=== PATIENT | male | born 1950 | race Caucasian/White ===

== ENCOUNTER → 2016-05-29 | Day surgery (SDC) | payer BC ==
[~2016-05-29] MED LIST: Lactated Ringers 1,000 ML IV SCH; Propofol 200 MG/20 ML SDV IV ONE
[2016-05-29 08:16] VITALS: BP 118/75
--- NOTE | 2016-05-29 08:51 | OR ---
DATE OF OPERATION: 05/29/2016 PREOPERATIVE DIAGNOSIS: HISTORY OF POLYPS. POSTOPERATIVE DIAGNOSIS: HISTORY OF POLYPS. SURGEON: Jaime Cabrera MD PROCEDURE: FULL-LENGTH COLONOSCOPY WITH POLYP REMOVAL X4. ANESTHESIA: UI APPLICATION DEVELOPER due to coronary artery disease. COMPLICATIONS: None. SPECIMEN: Four tubular adenomas. FINDINGS: 1. Full-length colonoscopy. 2. Tubular adenoma, sigmoid colon less than 0.5 cm. 3. Three right-sided polyps, all likely hyperplastic. RECOMMENDATIONS: We will make a followup recommendations pending path reports. INDICATIONS: The patient has a history of prior colonoscopy 5 years ago. He is told to have a followup at this time by a GI doctor. We elected to proceed at this time. DESCRIPTION OF PROCEDURE: The patient was prepped and draped, placed in the left lateral decubitus position. A lubricated Olympus colonoscope was inserted and easily advanced to the cecum and were directly able to visualize the ileocecal valve and appendiceal orifice. The bowel prep was adequate. There was some liquid stool throughout most of colon, but most of this was suctioned easily. Upon withdrawal right in the cecal pouch, the patient has a little cluster of what appear to be small hyperplastic polyps. It was probably anywhere from 6 to 8 of these. They were all flat and very close together. We elected to remove 2 of them with forceps in their entirety and felt the area was too broad to take all of these in one setting with a snare. The rest of the ascending colon was benign. Right at the hepatic flexure, the patient had an another what appeared to be small hyperplastic polyp removed in its entirety with forceps biopsy x2. The rest of the transverse colon and descending area looked completely benign. Throughout the sigmoid colon, there were no diverticula and no signs of colitis, vascular abnormalities, or bleeding. The patient did have a stalked tubular adenoma in mid and distal sigmoid colon, removed with a snare and suctioned into a Polyp Trap one without difficulty. The rectosigmoid junction and rectal vault appeared benign. Retroflexion of the scope in the rectum showed no anal lesions. Air was then suctioned. The scope was then removed without complication. The patient was stable in the recovery room. ALEJO/JUDD /[id number]
== END ==
LOC: CC.SDS 06:23
PROVIDERS: ATTEND Family Medicine
DX: Z12.11 Encounter for screening for malignant neoplasm of colon (principal); D12.3 Benign neoplasm of transverse colon; D12.0 Benign neoplasm of cecum; D12.4 Benign neoplasm of descending colon; D12.5 Benign neoplasm of sigmoid colon; I25.10 Atherosclerotic heart disease of native coronary artery without angina pectoris; E11.9 Type 2 diabetes mellitus without complications; E78.5 Hyperlipidemia, unspecified; I10 Essential (primary) hypertension; Z79.4 Long term (current) use of insulin; Z79.899 Other long term (current) drug therapy; Z86.010 Personal history of colon polyps; Z95.1 Presence of aortocoronary bypass graft; F17.210 Nicotine dependence, cigarettes, uncomplicated
CPT/HCPCS: 45380; 45385; 82962; J2704; J7120

== ENCOUNTER → 2019-04-14 | Day surgery (SDC) | payer MEDICARE, BC, OTHER ==
[~2019-04-14] MED LIST changes: -Propofol 200 MG/20 ML SDV IV ONE
[2019-04-14 09:53] VITALS: BP 125/76; PULSE 87
--- NOTE | 2019-04-14 14:06 | OR ---
DATE OF OPERATION: 04/14/2019 PREOPERATIVE DIAGNOSIS: FOLLOWUP POLYPS. POSTOPERATIVE DIAGNOSIS: FOLLOWUP POLYPS. SURGEON: Jaime Cabrera MD PROCEDURE: FULL-LENGTH COLONOSCOPY WITH FORCEPS POLYP REMOVAL X2. ANESTHESIA: MAC. COMPLICATIONS: None. SPECIMEN: Two small sessile polyps near hepatic flexure, each less than 0.5 cm. FINDINGS: 1. Full-length colonoscopy. 2. Marginal prep. 3. Sessile polyps x2, less than 0.5 cm. 4. Mild diverticulosis. RECOMMENDATIONS: Followup colonoscopy in 5 years. INDICATIONS: Mr. Green has had multiple scopes with polyps removed, last 1 was 3 years ago. He had 4 removed. We elected to proceed with diagnostic scope for followup. DESCRIPTION OF PROCEDURE: The patient was prepped and draped, placed in the left lateral decubitus position. Lubricated Olympus colonoscope was inserted and with ease advanced to the cecum. Unfortunately, the patient had a significant amount of stool, both in the rectal vault and the right colon. A lot of this was particulate. I irrigated the right colon quite heavily, but it was very hard to get through the scope plugged multiple times. The cecal pouch and 50% of the ascending colon were very difficult to visualize. Upon withdrawal, no obvious lesions were seen in the right colon or transverse area. Right at the splenic flexure, the patient had a small flat hyperplastic- appearing polyp, less than 0.5 cm in size. We removed it in entirely with a forceps biopsy x1. The 2nd polyp was just past the splenic flexure in the descending colon side removed with a forceps biopsy x3 without problem. Both areas had resolution of bleeding spontaneously. The rest of the descending area was benign. Throughout the sigmoid and rectosigmoid area, there were a few scattered diverticula, but no other polyps, masses, ulceration, or bleeding sites. No vascular abnormalities or signs of colitis. The rectal vault was unremarkable, but there was a heavy amount of stool present. We irrigated this, could not suction most, probably could see about 60% to 75% of the vault, the rest was stool filled. Retroflexion was able to be accomplished and no obvious perianal lesions were seen. Air was suctioned, scope removed without complication. ALEJO/JUDD /[id number]
== END ==
LOC: CC.SDS 07:45
PROVIDERS: ATTEND Family Medicine
DX: Z09 Encounter for follow-up examination after completed treatment for conditions other than malignant neoplasm (principal); D12.3 Benign neoplasm of transverse colon; I25.10 Atherosclerotic heart disease of native coronary artery without angina pectoris; I10 Essential (primary) hypertension; K57.30 Diverticulosis of large intestine without perforation or abscess without bleeding; Z86.010 Personal history of colon polyps; Z79.899 Other long term (current) drug therapy
CPT/HCPCS: 45380; J7120

== ENCOUNTER 2024-04-28 07:12 | Day surgery (SDC) | payer MEDICARE, BC, OTHER ==
[2024-04-28] MEDS: Lactated Ringers 1,000 ML IV SCH (07:34)
[2024-04-28] MEDS ORDERED: Midazolam 1 MG/ML 2 ML SDV ONE (07:55)
[2024-04-28] MEDS ORDERED: Propofol 200 MG/20 ML SDV ONE ×2 (07:55)
[2024-04-28] MEDS ORDERED: fentaNYL 50 MCG/ML SDV ONE (07:55)
[2024-04-28] MEDS ORDERED: Ketamine 200 MG/20 ML MDV ONE (07:55)
[2024-04-28 09:26] VITALS: BP 124/68; PULSE 84
== END 2024-04-28 09:34 | disposition home or self-care (01) ==
LOC: CC.SDS 07:12
PROVIDERS: ATTEND Family Medicine
DX: Z12.11 Encounter for screening for malignant neoplasm of colon (principal); D12.0 Benign neoplasm of cecum; D12.3 Benign neoplasm of transverse colon; K57.30 Diverticulosis of large intestine without perforation or abscess without bleeding; I10 Essential (primary) hypertension; E11.40 Type 2 diabetes mellitus with diabetic neuropathy, unspecified; E78.5 Hyperlipidemia, unspecified; I25.10 Atherosclerotic heart disease of native coronary artery without angina pectoris; Z79.4 Long term (current) use of insulin; Z79.85 Long-term (current) use of injectable non-insulin antidiabetic drugs; Z79.84 Long term (current) use of oral hypoglycemic drugs; Z79.899 Other long term (current) drug therapy; Z86.0100 Personal history of colon polyps, unspecified
CPT/HCPCS: 00811; 88305; 99100; J2250; J2704; J3010; J3490; J7120